=== PATIENT | female | born 1965 | race Caucasian/White ===

== ENCOUNTER → 2016-04-05 | Outpatient (CLI) | payer MEDICAID ==
[2016-04-05 10:39] LABS: % Iron Saturation 31.3 % (20-50)
== END | disposition home or self-care (01) ==
LOC: LABWHC1 07:51
PROVIDERS: ATTEND Clinical Nurse Specialist Women's Health
DX: Z09 Encounter for follow-up examination after completed treatment for conditions other than malignant neoplasm (principal); Z85.850 Personal history of malignant neoplasm of thyroid
CPT/HCPCS: 36415; 83540; 83550; 84481

== ENCOUNTER → 2016-05-26 | Outpatient (CLI) | payer MEDICAID ==
[2016-05-26 12:00] LABS: % Iron Saturation 22.9 % (20-50)
== END | disposition home or self-care (01) ==
LOC: LABWHC1 07:13
PROVIDERS: ATTEND Clinical Nurse Specialist Women's Health
DX: D64.9 Anemia, unspecified (principal)
CPT/HCPCS: 36415; 82728; 83540; 83550

== ENCOUNTER → 2016-06-29 | Outpatient (CLI) | payer MEDICAID ==
[2016-06-29 17:37] LABS: Basophils # (A) 0.1 k/uL (0-0.2); Basophils % (A) 1 %; CHCM 34.1; Eosinophils # (A) 0.3 k/uL (0-0.7); Eosinophils % (A) 3 %; HCT 45.1 % (34.0-46.0); HDW 2.84; HGB 15.2 gm/dL (11.4-16.0); Luc # (Auto) 0.14; Luc % (Auto) 2; Lymphocytes # (A) 2.1 k/uL (1.0-4.8); Lymphocytes % (A) 24 %; MCH 29.8 pg (25.0-35.0); MCHC 33.6 g/dL (31.0-37.0); MCV 88.5 fL (80.0-100.0); Mean Platelet Volume 6.7; Monocytes # (A) 0.5 k/uL (0-1.0); Monocytes % (A) 6 %; Neutrophils # (A) 5.7 k/uL (1.3-7.7); Neutrophils % (A) 65 %; RDW 13.7 % (11.5-15.5); WBC 8.7 k/uL (3.8-10.6); WBC (Perox) 8.93
[2016-06-29 17:52] LABS: ALT 80 U/L (9-52); AST 47 U/L (14-36); Alkaline Phosphatase 63 U/L (38-126); Anion Gap 13 mmol/L; Blood Urea Nitrogen 14 mg/dL (7-17); Calcium 9.5 mg/dL (8.4-10.2); Carbon Dioxide 26 mmol/L (22-30); Chloride 105 mmol/L (98-107); Glucose 126 mg/dL (74-99); Non-African American GFR(MDRD) >60 (>60 ml/min/1.73 sqM); Potassium 3.9 mmol/L (3.5-5.1); Sodium 144 mmol/L (137-145); Total Bilirubin 0.4 mg/dL (0.2-1.3); Total Protein 7.4 g/dL (6.3-8.2)
== END ==
LOC: LABWHC1 17:00
PROVIDERS: ATTEND Family Medicine
DX: E03.9 Hypothyroidism, unspecified (principal); R53.83 Other fatigue; R00.2 Palpitations
CPT/HCPCS: 36415; 80053; 84439; 84443; 84481; 85025

== ENCOUNTER → 2016-08-14 | Outpatient (CLI) | payer MEDICAID ==
[2016-08-14 11:13] LABS: ALT 56 U/L (9-52); AST 31 U/L (14-36); Alkaline Phosphatase 59 U/L (38-126); Anion Gap 8 mmol/L; Blood Urea Nitrogen 19 mg/dL (7-17); Carbon Dioxide 25 mmol/L (22-30); Chloride 108 mmol/L (98-107); Cholesterol 146 mg/dL (<200); Glucose 93 mg/dL (74-99); HDL Cholesterol 50 mg/dL (40-60); Non-African American GFR(MDRD) >60 (>60 ml/min/1.73 sqM); Potassium 4.3 mmol/L (3.5-5.1); Sodium 141 mmol/L (137-145); Total Bilirubin 0.5 mg/dL (0.2-1.3); Total Protein 6.5 g/dL (6.3-8.2); Triglycerides 74 mg/dL (<150)
== END | disposition home or self-care (01) ==
LOC: LABWHC1 07:19
PROVIDERS: ATTEND Family Medicine
DX: E03.9 Hypothyroidism, unspecified (principal); R94.5 Abnormal results of liver function studies; R53.83 Other fatigue
CPT/HCPCS: 36415; 80053; 80061; 84439; 84443; 84481

== ENCOUNTER → 2017-01-07 | Outpatient (CLI) | payer MEDICAID ==
--- NOTE | 2017-01-07 15:21 | US ---
EXAMINATION TYPE: US gallbladder DATE OF EXAM: 01/07/2017 COMPARISON: NONE CLINICAL HISTORY: RUQ pain R10.9. Pt states RUQ pain EXAM MEASUREMENTS: Liver Length: 13.8 cm Gallbladder Wall: 0.2 cm CBD: 0.4 cm Right Kidney: 10.3 x 4.1 x 5.0 cm Pancreas: wnl, tail obscured by overlying bowel gas Liver: wnl Gallbladder: Possible polyp anterior wall Evidence for sonographic Duenas's sign: No CBD: wnl Right Kidney: wnl IMPRESSION: 1. Echogenic foci within the nondependent portion of the gallbladder could be of gallbladder polyp.
== END | disposition home or self-care (01) ==
LOC: RADUSWWP 06:55
PROVIDERS: ATTEND Surgery
DX: R93.2 Abnormal findings on diagnostic imaging of liver and biliary tract (principal); R10.11 Right upper quadrant pain
CPT/HCPCS: 76705

== ENCOUNTER → 2017-01-27 | Outpatient (CLI) | payer MEDICAID | END | disposition home or self-care (01) | LOC: LABWHC1 07:18 | PROVIDERS: ATTEND Family Medicine | DX: E03.9 Hypothyroidism, unspecified (principal); R94.5 Abnormal results of liver function studies; R10.811 Right upper quadrant abdominal tenderness | CPT/HCPCS: 36415; 84439; 84443; 84481 ==

== ENCOUNTER → 2017-03-22 | Outpatient (CLI) | payer MEDICAID ==
[2017-03-22 10:15] LABS: T4, Free (Free Thyroxine) 1.34 ng/dL (0.78-2.19)
== END | disposition home or self-care (01) ==
LOC: LABWHC1 07:46
PROVIDERS: ATTEND Family Medicine
DX: E03.9 Hypothyroidism, unspecified (principal); R10.811 Right upper quadrant abdominal tenderness; R94.5 Abnormal results of liver function studies
CPT/HCPCS: 36415; 84439; 84443; 84481

== ENCOUNTER → 2017-07-20 | Outpatient (CLI) | payer MEDICAID ==
--- NOTE | 2017-07-20 15:06 | XR ---
EXAMINATION TYPE: XR Hip RT and AP Pelvis DATE OF EXAM: 07/20/2017 COMPARISON: NONE HISTORY: Right hip pain radiating from back TECHNIQUE: AP pelvis and 2 views right hip FINDINGS: No acute fractures are evident. Sacroiliac joints and symphysis pubis are normal. Femoral heads articulate with the acetabulum. Joint spaces preserved. Right hip appears intact. IMPRESSION: 1. Normal right hip and AP pelvis
== END | disposition home or self-care (01) ==
LOC: RADXRMAIN 09:01
PROVIDERS: ATTEND Physician Assistant
DX: M25.551 Pain in right hip (principal)
CPT/HCPCS: 73502

== ENCOUNTER → 2017-08-22 | Outpatient (CLI) | payer MEDICAID ==
--- NOTE | 2017-08-23 11:16 | ECHOF ---
Referral Reason:Q23.1 bicuspid aortic valve MEASUREMENTS -------- HEIGHT: 154.9 cm WEIGHT: 70.3 kg BP: 111/77 RVIDd: 2.8 cm (< 3.3) IVSd: 0.9 cm (0.6 - 1.1) LVIDd: 4.6 cm (3.9 - 5.3) LVPWd: 0.9 cm (0.6 - 1.1) IVSs: 1.3 cm LVIDs: 3.4 cm LVPWs: 1.5 cm LA Diam: 3.3 cm (2.7 - 3.8) LAESV Index (A-L): 22.21 ml/m Ao Diam: 3.4 cm (2.0 - 3.7) AV Cusp: 2.3 cm (1.5 - 2.6) MV EXCURSION: 10.629 mm (> 18.000) MV EF SLOPE: 73 mm/s (70 - 150) EPSS: 0.8 cm AV maxP.89 mmHg AV meanP.16 mmHg RAP: 5.00 mmHg RVSP: 24.18 mmHg FINDINGS -------- Sinus rhythm. This was a technically good study. The left ventricular size is normal. Left ventricular wall thickness is normal. Overall left vent ricular systolic function is normal with, an EF between 60 - 65 %. The right ventricle is normal in size. Normal LA size by volume 22+/-6 ml/m2. The right atrium is normal in size. The aortic valve is BICUSPID. Peak/mean gradient across the Aortic Valve is 7.89mmHg / 3.16mmHg. There is trace to mild mitral regurgitation. Mild tricuspid regurgitation present. Right ventricular systolic pressure is normal at < 35 mmHg. Trace/mild (physiologic) pulmonic regurgitation. The aortic root size is normal. Normal inferior vena cava with normal inspiratory collapse consistent with estimated right atrial pre ssure of 5 mmHg. There is no pericardial effusion. CONCLUSIONS -------- 1. Sinus rhythm. 2. This was a technically good study. 3. The left ventricular size is normal. 4. Left ventricular wall thickness is normal. 5. Overall left ventricular systolic function is normal with, an EF between 60 - 65 %. 6. The right ventricle is normal in size. 7. Normal LA size by volume 22+/-6 ml/m2. 8. The right atrium is normal in size. 9. The aortic valve is BICUSPID 10. Peak/mean gradient across the Aortic Valve is 7.89mmHg / 3.16mmHg. 11. There is trace to mild mitral regurgitation. 12. Mild tricuspid regurgitation present. 13. Right ventricular systolic pressure is normal at < 35 mmHg. 14. Trace/mild (physiologic) pulmonic regurgitation. 15. The aortic root size is normal. 16. Normal inferior vena cava with normal inspiratory collapse consistent with estimated right atrial pressure of 5 mmHg. 17. There is no pericardial effusion. SUPERVISOR CABINETMAKER: Maisha Maria RDCS
== END | disposition home or self-care (01) ==
LOC: RADECHMAIN 13:15
PROVIDERS: ATTEND Internal Medicine Cardiovascular Disease
DX: I08.1 Rheumatic disorders of both mitral and tricuspid valves (principal)
CPT/HCPCS: 93306

== ENCOUNTER → 2017-09-30 | Outpatient (CLI) | payer MEDICAID ==
--- NOTE | 2017-10-03 07:13 | MR ---
EXAMINATION TYPE: MR angio chest wo/w con DATE OF EXAM: 09/30/2017 COMPARISON: Prior MRA chest September 21, 2014. HISTORY: Thoracic aortic aneurysm, without rupture,Gadavist 7.5ml CONTRAST: Standard multiplanar, multisequence MRA departmental protocol utilizing 7.5 mL intravenous Gadavist g adolinium contrast. Imaging is performed of the thorax focusing on thoracic aorta. 2-D and 3-D recon structed images are created on the MRI scan are reviewed. FINDINGS: AORTA: Ascending aortic aneurysm measures up to 3.9 cm in diameter on axial image 18 series 1001. Olu e extension into the proximal aortic arch is redemonstrated near three-vessel takeoff measuring up to 3.3 cm in diameter axial image 23. Overall no significant change or progression from prior MRA. Norm al three-vessel origin is redemonstrated without aneurysmal change. No aneurysmal change to the ascen ding aorta is seen. Cardiac size is stable and upper limits of normal. OTHER: Visualized portion of upper abdomen shows no suspicious abnormality. Visualized lungs are lyndsay ssly clear. No suspicious breast masses or axillary adenopathy is identified. IMPRESSION: Stable 3.9 cm aneurysmal change to ascending aorta extending into proximal arch.
== END | disposition home or self-care (01) ==
LOC: RADMRIMAIN 14:27
PROVIDERS: ATTEND Internal Medicine Cardiovascular Disease
DX: I71.2 Thoracic aortic aneurysm, without rupture (principal)
CPT/HCPCS: 71555; A9581

== ENCOUNTER → 2017-10-07 | Outpatient (CLI) | payer MEDICAID ==
[2017-10-07 08:10] LABS: Basophils % (A) 1 %; Eosinophils # (A) 0.1 k/uL (0-0.7); Eosinophils % (A) 2 %; HCT 43.4 % (34.0-46.0); HGB 14.6 gm/dL (11.4-16.0); Lymphocytes # (A) 1.4 k/uL (1.0-4.8); Lymphocytes % (A) 30 %; MCH 29.6 pg (25.0-35.0); MCHC 33.7 g/dL (31.0-37.0); MCV 87.9 fL (80.0-100.0); Mean Platelet Volume 7.5; Monocytes # (A) 0.3 k/uL (0-1.0); Monocytes % (A) 6 %; Neutrophils # (A) 2.8 k/uL (1.3-7.7); Neutrophils % (A) 59 %; Platelet Count 177 k/uL (150-450); RBC 4.93 m/uL (3.80-5.40); WBC 4.8 k/uL (3.8-10.6)
[2017-10-07 08:25] LABS: ALT 32 U/L (9-52); AST 27 U/L (14-36); Albumin 4.3 g/dL (3.5-5.0); Alkaline Phosphatase 49 U/L (38-126); Anion Gap 7 mmol/L; Blood Urea Nitrogen 12 mg/dL (7-17); Calcium 9.4 mg/dL (8.4-10.2); Carbon Dioxide 28 mmol/L (22-30); Chloride 106 mmol/L (98-107); Cholesterol 197 mg/dL (<200); Glucose 95 mg/dL (74-99); HDL Cholesterol 62 mg/dL (40-60); LDL Cholesterol,Calculated 118 mg/dL (0-99); Potassium 4.4 mmol/L (3.5-5.1); Sodium 141 mmol/L (137-145); Total Bilirubin 0.5 mg/dL (0.2-1.3); Total Protein 6.8 g/dL (6.3-8.2); Triglycerides 87 mg/dL (<150)
[2017-10-07 08:34] LABS: T4, Free (Free Thyroxine) 1.64 ng/dL (0.78-2.19)
== END | disposition home or self-care (01) ==
LOC: LABWHC1 07:28
PROVIDERS: ATTEND Family Medicine
DX: Z00.00 Encounter for general adult medical examination without abnormal findings (principal); I10 Essential (primary) hypertension; E03.9 Hypothyroidism, unspecified; Z79.899 Other long term (current) drug therapy
CPT/HCPCS: 36415; 80053; 80061; 84439; 84443; 85025

== ENCOUNTER → 2017-10-13 | Outpatient (CLI) | payer MEDICAID ==
--- NOTE | 2017-10-18 09:17 | MM ---
Reason for exam: screening (asymptomatic). Last mammogram was performed 1 year and 10 months ago. History: Patient is nulliparous. Family history of breast cancer in cousin and breast cancer in aunt. Physical Findings: A clinical breast exam by your physician is recommended on an annual basis and results should be correlated with mammographic findings. MG 3D Screening Mammo W/Cad Bilateral CC and MLO view(s) were taken. Prior study comparison: December 03, 2015, bilateral MG 3d screening mammo w/cad. January 20, 2011, bilateral digital screening mammo w/CAD. There are scattered fibroglandular densities. Benign appearing bilateral calcifications. There is no discrete abnormality. No significant changes when compared with prior studies. ASSESSMENT: Benign, BI-RAD 2 RECOMMENDATION: Routine screening mammogram of both breasts in 1 year.
== END | disposition home or self-care (01) ==
LOC: RADMAMWWP 09:18
PROVIDERS: ATTEND Obstetrics & Gynecology
DX: Z12.31 Encounter for screening mammogram for malignant neoplasm of breast (principal); Z80.3 Family history of malignant neoplasm of breast
CPT/HCPCS: 77063; 77067

== ENCOUNTER → 2018-12-14 | Outpatient (CLI) | payer MEDICAID ==
[2018-12-14 07:58] LABS: Basophils # (A) 0.1 k/uL (0-0.2); Basophils % (A) 2 %; Eosinophils # (A) 0.2 k/uL (0-0.7); Eosinophils % (A) 4 %; HCT 44.8 % (34.0-46.0); HGB 14.3 gm/dL (11.4-16.0); Lymphocytes # (A) 1.5 k/uL (1.0-4.8); Lymphocytes % (A) 33 %; MCH 27.9 pg (25.0-35.0); MCHC 31.9 g/dL (31.0-37.0); MCV 87.5 fL (80.0-100.0); Mean Platelet Volume 6.8; Monocytes # (A) 0.3 k/uL (0-1.0); Monocytes % (A) 8 %; Neutrophils # (A) 2.4 k/uL (1.3-7.7); Neutrophils % (A) 52 %; Platelet Count 170 k/uL (150-450); RBC 5.12 m/uL (3.80-5.40); RDW 13.5 % (11.5-15.5); WBC 4.5 k/uL (3.8-10.6)
[2018-12-14 13:28] LABS: African American GFR (CKD) 97.6 (60.0-200.0); Albumin 4.6 g/dL (3.80-4.90); Albumin/Globulin Ratio 2.09 (1.60-3.17); Anion Gap 9.1 mmol/L (4.00-12.00); BUN/Creat Ratio 27.5 Ratio (12.00-20.00); Calcium 9.7 mg/dL (8.7-10.3); Carbon Dioxide 29.9 mmol/L (21.6-31.8); Chol/HDL Ratio 4.08; Globulin 2.2 g/dL (1.6-3.3); Potassium 4.4 mmol/L (3.5-5.5); Total Bilirubin 0.5 mg/dL (0.3-1.2); Total Protein 6.8 g/dL (6.2-8.2)
== END | disposition home or self-care (01) ==
LOC: LABWHC1 07:33
PROVIDERS: ATTEND Family Medicine
DX: Z00.00 Encounter for general adult medical examination without abnormal findings (principal); F41.1 Generalized anxiety disorder; E03.9 Hypothyroidism, unspecified
CPT/HCPCS: 36415; 80053; 80061; 84439; 84443; 85025

== ENCOUNTER → 2019-01-01 | Outpatient (CLI) | payer MEDICAID ==
--- NOTE | 2019-01-02 10:38 | MM ---
Reason for exam: screening (asymptomatic). Last mammogram was performed 1 year and 3 months ago. History: Patient is nulliparous. Family history of breast cancer in cousin and breast cancer in aunt. Physical Findings: A clinical breast exam by your physician is recommended on an annual basis and results should be correlated with mammographic findings. MG 3D Screening Mammo W/Cad Bilateral CC and MLO view(s) were taken. Prior study comparison: October 13, 2017, bilateral MG 3d screening mammo w/cad. December 03, 2015, bilateral MG 3d screening mammo w/cad. There are scattered fibroglandular densities. There are benign appearing round calcifications bilaterally. There is no discrete abnormality. ASSESSMENT: Benign, BI-RAD 2 RECOMMENDATION: Routine screening mammogram of both breasts in 1 year.
== END | disposition home or self-care (01) ==
LOC: RADMAMWWP 13:30
PROVIDERS: ATTEND Family Medicine
DX: Z12.31 Encounter for screening mammogram for malignant neoplasm of breast (principal)
CPT/HCPCS: 77063; 77067

== ENCOUNTER 2019-09-24 04:46 | Emergency (ER) | payer MEDICAID ==
[2019-09-24 04:54] VITALS: TEMP 99.1
--- NOTE | 2019-09-24 05:35 | ED ---
SOB HPI - General Chief Complaint: Shortness of Breath Stated Complaint: CHARLES Time Seen by Provider: 09/24/19 05:15 Source: patient Mode of arrival: ambulatory Limitations: no limitations - History of Present Illness Initial Comments: This patient is a 54-year-old woman with history of asthma and ALLERGIES, who presents to be evaluated for shortness of breath and upper chest pain that has been going on since Tuesday. Patient states that she had initially felt this may be an exacerbation of her asthma, but when she woke this morning she also was having some fever associated and felt she should be evaluated. 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 MD Complaint: shortness of breath, chest pain Onset/Timin -: days(s) Severity: mild Severity scale (1-10): 2 Quality: dull Consistency: intermittent Improves With: nothing Worsens With: nothing Known History Of: asthma Associated Symptoms: chest pain, fever - Related Data Home Oxygen Therapy: No Home Medications Medication Instructions Recorded Confirmed Albuterol Sulfate [Ventolin HFA] 1 - 2 puff INHALATION RT-Q6H PRN 09/24/19 09/24/19 Calcium Chew 1 tab PO DAILY 09/24/19 09/24/19 Cefuroxime [Ceftin] 250 mg PO DAILY 09/24/19 09/24/19 Cetirizine HCl [Zyrtec] 10 mg PO DAILY@1800 09/24/19 09/24/19 Fluticasone Nasal Tucker [Flonase 1 spr EA NOSTRIL HS 09/24/19 09/24/19 Nasal Tucker] Ibuprofen [Motrin Ib] 200 mg PO Q8H PRN 09/24/19 09/24/19 Levothyroxine Sodium [Synthroid] 112 mcg PO DAILY 09/24/19 09/24/19 Montelukast [Singulair] 10 mg PO DAILY 09/24/19 09/24/19 Multivitamins, Thera [Multivitamin 1 tab PO DAILY 09/24/19 09/24/19 (formulary)] Sertraline [Zoloft] 50 mg PO DAILY 09/24/19 09/24/19 Allergies Allergy/AdvReac Type Severity Reaction Status Date / Time No Known Allergies Allergy Verified 09/24/19 07:39 Review of Systems ROS Statement: Those systems with pertinent positive or pertinent negative responses have been documented in the HPI. ROS Other: All systems not noted in ROS Statement are negative. Constitutional: Reports: fever. Denies: chills, weakness ENT: Denies: throat pain, congestion Respiratory: Reports: as per HPI, dyspnea, wheezes. Denies: hemoptysis Cardiovascular: Reports: as per HPI, chest pain. Denies: palpitations, dyspnea on exertion, orthopnea, edema Gastrointestinal: Denies: abdominal pain, nausea, vomiting Genitourinary: Denies: dysuria, frequency, hematuria Musculoskeletal: Denies: back pain Skin: Denies: rash Neurological: Denies: headache, weakness Past Medical History Past Medical History: Asthma History of Any Multi-Drug Resistant Organisms: None Reported Past Surgical History: No Surgical Hx Reported Past Psychological History: No Psychological Hx Reported Smoking Status: Never smoker Past Alcohol Use History: Rare Past Drug Use History: None Reported General Exam Limitations: no limitations General appearance: alert, in no apparent distress Head exam: Present: atraumatic, normocephalic Eye exam: Present: normal appearance. Absent: scleral icterus, conjunctival injection ENT exam: Present: mucous membranes moist, other (Mild cobblestoning of the pharynx) Neck exam: Present: normal inspection, full ROM Respiratory exam: Present: wheezes. Absent: normal lung sounds bilaterally, respiratory distress, rales, rhonchi, stridor Cardiovascular Exam: Present: regular rate, normal rhythm, normal heart sounds. Absent: systolic murmur, diastolic murmur, rubs, gallop GI/Abdominal exam: Present: soft. Absent: distended, tenderness, guarding, rebound, rigid, mass Extremities exam: Present: normal inspection, normal capillary refill. Absent: pedal edema, calf tenderness Back exam: Present: normal inspection. Absent: CVA tenderness (R), CVA tenderness (L) Neurological exam: Present: alert Skin exam: Present: warm, dry, intact, normal color. Absent: rash Course Vital Signs 09/24/19 09/24/19 09/24/19 04:50 05:12 07:22 Temperature 99.1 F Pulse Rate 97 75 Respiratory 18 16 16 Rate Blood Pressure 137/100 138/93 O2 Sat by Pulse 97 98 Oximetry 09/24/19 08:00 Temperature Pulse Rate 75 Respiratory 16 Rate Blood Pressure 122/87 O2 Sat by Pulse 98 Oximetry Medical Decision Making - Lab Data Result diagrams: 09/24/19 05:51 09/24/19 05:51 Lab Results 09/24/19 09/24/19 09/24/19 Range/Units 05:51 05:51 05:51 WBC 9.1 (3.8-10.6) k/uL RBC 4.77 (3.80-5.40) m/uL Hgb 14.3 (11.4-16.0) gm/dL Hct 41.1 (34.0-46.0) % MCV 86.2 (80.0-100.0) fL MCH 30.0 (25.0-35.0) pg MCHC 34.8 (31.0-37.0) g/dL RDW 13.4 (11.5-15.5) % Plt Count 177 (150-450) k/uL Neutrophils % 75 % Lymphocytes % 15 % Monocytes % 8 % Eosinophils % 1 % Basophils % 0 % Neutrophils # 6.8 (1.3-7.7) k/uL Lymphocytes # 1.3 (1.0-4.8) k/uL Monocytes # 0.7 (0-1.0) k/uL Eosinophils # 0.1 (0-0.7) k/uL Basophils # 0.0 (0-0.2) k/uL PT 9.6 (9.0-12.0) sec INR 0.9 (<1.2) APTT 24.7 (22.0-30.0) sec D-Dimer 1.13 H (<0.60) mg/L FEU Sodium 140 (137-145) mmol/L Potassium 4.4 (3.5-5.1) mmol/L Chloride 108 H (98-107) mmol/L Carbon Dioxide 26 (22-30) mmol/L Anion Gap 6 mmol/L BUN 11 (7-17) mg/dL Creatinine 0.60 (0.52-1.04) mg/dL Est GFR (CKD-EPI)AfAm >90 (>60 ml/min/1.73 sqM) Est GFR (CKD-EPI)NonAf >90 (>60 ml/min/1.73 sqM) Glucose 110 H (74-99) mg/dL Calcium 9.8 (8.4-10.2) mg/dL Total Bilirubin 0.7 (0.2-1.3) mg/dL AST 32 (14-36) U/L ALT 19 (4-34) U/L Alkaline Phosphatase 76 (38-126) U/L Troponin I (0.000-0.034) ng/mL NT-Pro-B Natriuret Pep pg/mL Total Protein 7.5 (6.3-8.2) g/dL Albumin 4.5 (3.5-5.0) g/dL 09/24/19 09/24/19 Range/Units 05:51 05:51 WBC (3.8-10.6) k/uL RBC (3.80-5.40) m/uL Hgb (11.4-16.0) gm/dL Hct (34.0-46.0) % MCV (80.0-100.0) fL MCH (25.0-35.0) pg MCHC (31.0-37.0) g/dL RDW (11.5-15.5) % Plt Count (150-450) k/uL Neutrophils % % Lymphocytes % % Monocytes % % Eosinophils % % Basophils % % Neutrophils # (1.3-7.7) k/uL Lymphocytes # (1.0-4.8) k/uL Monocytes # (0-1.0) k/uL Eosinophils # (0-0.7) k/uL Basophils # (0-0.2) k/uL PT (9.0-12.0) sec INR (<1.2) APTT (22.0-30.0) sec D-Dimer (<0.60) mg/L FEU Sodium (137-145) mmol/L Potassium (3.5-5.1) mmol/L Chloride (98-107) mmol/L Carbon Dioxide (22-30) mmol/L Anion Gap mmol/L BUN (7-17) mg/dL Creatinine (0.52-1.04) mg/dL Est GFR (CKD-EPI)AfAm (>60 ml/min/1.73 sqM) Est GFR (CKD-EPI)NonAf (>60 ml/min/1.73 sqM) Glucose (74-99) mg/dL Calcium (8.4-10.2) mg/dL Total Bilirubin (0.2-1.3) mg/dL AST (14-36) U/L ALT (4-34) U/L Alkaline Phosphatase (38-126) U/L Troponin I <0.012 (0.000-0.034) ng/mL NT-Pro-B Natriuret Pep 291 pg/mL Total Protein (6.3-8.2) g/dL Albumin (3.5-5.0) g/dL - EKG Data -: EKG Interpreted by Me EKG shows normal: sinus rhythm (Rate 79 bpm), axis (Normal), intervals (Normal), QRS complexes (Normal), ST-T waves (Normal) Rate: normal (Normal) Interpretation: normal EKG Disposition Clinical Impression: Asthma Disposition: HOME SELF-CARE Condition: Good Instructions (If sedation given, give patient instructions): Asthma (ED) Is patient prescribed a controlled substance at d/c from ED?: No Referrals: Alex Sandoval MD [Primary Care Provider] - 1-2 days
[2019-09-24 06:13] LABS: Basophils % (A) 0 %; Eosinophils # (A) 0.1 k/uL (0-0.7); Eosinophils % (A) 1 %; HCT 41.1 % (34.0-46.0); HGB 14.3 gm/dL (11.4-16.0); Lymphocytes # (A) 1.3 k/uL (1.0-4.8); Lymphocytes % (A) 15 %; MCHC 34.8 g/dL (31.0-37.0); MCV 86.2 fL (80.0-100.0); Mean Platelet Volume 7.3; Monocytes # (A) 0.7 k/uL (0-1.0); Monocytes % (A) 8 %; Neutrophils # (A) 6.8 k/uL (1.3-7.7); Neutrophils % (A) 75 %; Platelet Count 177 k/uL (150-450); RBC 4.77 m/uL (3.80-5.40); RDW 13.4 % (11.5-15.5); WBC 9.1 k/uL (3.8-10.6)
[2019-09-24 06:21] LABS: ALT 19 U/L (4-34); AST 32 U/L (14-36); African American GFR (CKD) >90 (>60 ml/min/1.73 sqM); Albumin 4.5 g/dL (3.5-5.0); Alkaline Phosphatase 76 U/L (38-126); Anion Gap 6 mmol/L; Blood Urea Nitrogen 11 mg/dL (7-17); Calcium 9.8 mg/dL (8.4-10.2); Carbon Dioxide 26 mmol/L (22-30); Chloride 108 mmol/L (98-107); Glucose 110 mg/dL (74-99); Non-African American GFR(CKD) >90 (>60 ml/min/1.73 sqM); Potassium 4.4 mmol/L (3.5-5.1); Sodium 140 mmol/L (137-145); Total Bilirubin 0.7 mg/dL (0.2-1.3); Total Protein 7.5 g/dL (6.3-8.2)
[2019-09-24 06:24] LABS: INR 0.9 (<1.2); Partial Thromboplastin Time 24.7 sec (22.0-30.0); Prothrombin Time 9.6 sec (9.0-12.0)
[2019-09-24 06:38] LABS: D-Dimer 1.13 mg/L FEU (<0.60)
--- NOTE | 2019-09-24 07:05 | XR ---
EXAMINATION TYPE: XR chest 2V DATE OF EXAM: 09/24/2019 COMPARISON: NONE HISTORY: Short of breath TECHNIQUE: FINDINGS: Heart and mediastinum are normal. Lungs are clear. Diaphragm is normal. Bony thorax appears normal. IMPRESSION: Normal chest.
--- NOTE | 2019-09-24 08:03 | CT ---
EXAMINATION TYPE: CT chest angio for PE DATE OF EXAM: 09/24/2019 COMPARISON: None HISTORY: Possible PE, positive D-dimer CT DLP: 282 mGycm CONTRAST: CT chest with contrast and 3D reconstruction with MIP imaging is performed without and with IV Contra st, patient injected with 100 ml mL of Isovue 370. Contrast-enhanced CT of the chest was performed through the course of the pulmonary arteries with jewel g and mediastinal window settings submitted. 3D reconstruction with MIP imaging was also performed. PULMONARY ARTERIES: The pulmonary arteries and their major tributaries are patent. I do not see blanca dence for sizable filling defect to suggest pulmonary embolic process. LUNGS: The lungs are clear and free of infiltrate. Mild left basilar and lingular atelectasis. Small left-sided pleural effusion. No pulmonary nodule or mass is detected. No MEDIASTINUM: Ascending thoracic aortic aneurysm measuring 4.2 cm AP dimension. The heart is mildly en larged. Mild pericardial thickening versus small pericardial effusion. No evidence for mediastinal m ass. No mediastinal lymph nodes greater than 1cm. HILAR STRUCTURES: No evidence for mass. No hilar lymph nodes greater than 1 cm. UPPER ABDOMEN: No significant abnormality is seen. IMPRESSION: 1. No evidence for Pulmonary embolism at this time.
[2019-09-24 08:10] VITALS: BP 122/87
[2019-09-24 08:33] VITALS: PULSE 71; RESP 14
== END 2019-09-24 08:32 | disposition home or self-care (01) ==
LOC: EC 04:46
DX: J45.909 Unspecified asthma, uncomplicated (principal); Z20.828 Contact with and (suspected) exposure to other viral communicable diseases
CPT/HCPCS: 36415; 93005; 85379; 83880; 80053; 84484; 85025; 85610; 85730; 71046; 71275; 99285; U0003; Q9967

== ENCOUNTER → 2019-09-25 | Outpatient (CLI) | payer MEDICAID | LOC: LABWHC1 10:29 | PROVIDERS: ATTEND Pediatrics Pediatric Infectious Diseases | DX: Z11.59 Encounter for screening for other viral diseases (principal) | CPT/HCPCS: U0003; C9803 ==

== ENCOUNTER → 2020-07-18 | Outpatient (CLI) | payer MEDICAID ==
[2020-07-18 13:31] LABS: Basophils % (A) 1 %; Eosinophils # (A) 0.1 k/uL (0-0.7); Eosinophils % (A) 2 %; HCT 42.6 % (34.0-46.0); Lymphocytes # (A) 1.6 k/uL (1.0-4.8); Lymphocytes % (A) 40 %; MCH 29.9 pg (25.0-35.0); MCHC 35.2 g/dL (31.0-37.0); MCV 84.9 fL (80.0-100.0); Mean Platelet Volume 9.2; Monocytes # (A) 0.3 k/uL (0-1.0); Monocytes % (A) 8 %; Neutrophils % (A) 49 %; Platelet Count 166 k/uL (150-450); RBC 5.02 m/uL (3.80-5.40); RDW 12.9 % (11.5-15.5); WBC 4.2 k/uL (3.8-10.6)
[2020-07-18 21:03] LABS: T4, Free (Free Thyroxine) 1.3 ng/dL (0.80-1.80)
[2020-07-18 21:15] LABS: African American GFR (CKD) 96.2 (60.0-200.0); Albumin 4.5 g/dL (3.80-4.90); Albumin/Globulin Ratio 1.88 (1.60-3.17); Anion Gap 11.7 mmol/L (4.00-12.00); BUN/Creat Ratio 22.5 Ratio (12.00-20.00); Calcium 9.3 mg/dL (8.7-10.3); Carbon Dioxide 21.3 mmol/L (21.6-31.8); Chol/HDL Ratio 3.78; Globulin 2.4 g/dL (1.6-3.3); LDL Cholesterol,Calculated 117.6 mg/dL (0.0-131.0); Potassium 4.8 mmol/L (3.5-5.5); Total Bilirubin 0.5 mg/dL (0.2-1.2); Total Protein 6.9 g/dL (6.2-8.2); VLDL Calculation 18.4 mg/dL (5.00-40.00)
== END | disposition home or self-care (01) ==
LOC: LABWHC1 11:10
PROVIDERS: ATTEND Family Medicine
DX: I71.4 Abdominal aortic aneurysm, without rupture (principal)
CPT/HCPCS: 36415; 80053; 80061; 84439; 84443; 85025

== ENCOUNTER → 2020-07-21 | Outpatient (CLI) | payer MEDICAID ==
--- NOTE | 2020-07-22 08:34 | XR ---
EXAMINATION TYPE: XR cervical spine comp DATE OF EXAM: 07/21/2020 CLINICAL HISTORY: pain COMPARISON: NONE TECHNIQUE: Frontal, lateral, oblique, swimmers, and open mouth view of the cervical spine are obtaine d. FINDINGS: The cervical spine is visualized in its entirety from C1 thru the top of T1 level. It is s atisfactory in alignment without evidence of acute fracture or dislocation. The pre-vertebral soft t issue appears within normal limits. Moderate to severe degenerative disc space narrowing and spondylo sis at C6-7. Mild degenerative narrowing at C4-5 and C5-6. Mild left-sided foraminal encroachment at C6-7. The C1-C2 articulation is unremarkable on the open mouth view. IMPRESSION: Degenerative changes as noted above.
== END | disposition home or self-care (01) ==
LOC: RADXRMAIN 16:08
PROVIDERS: ATTEND Family Medicine
DX: M50.323 Other cervical disc degeneration at C6-C7 level (principal); M47.812 Spondylosis without myelopathy or radiculopathy, cervical region; M99.71 Connective tissue and disc stenosis of intervertebral foramina of cervical region
CPT/HCPCS: 72050

== ENCOUNTER → 2020-07-21 | Outpatient (CLI) | payer MEDICAID ==
--- NOTE | 2020-07-21 16:52 | ECHOF ---
Referral Reason:AAA greater than 39mm in diameter I71.4 MEASUREMENTS -------- HEIGHT: 154.9 cm WEIGHT: 72.6 kg BP: IVSd: 1.0 cm (0.6 - 1.1) LVIDd: 4.4 cm (3.9 - 5.3) LVPWd: 1.1 cm (0.6 - 1.1) EDV(Teich): 87 ml IVSs: 1.5 cm LVIDs: 2.7 cm LVPWs: 1.6 cm %IVS Thck: 43 % ESV(Teich): 27 ml EF(Teich): 69 % %FS: 38 % SV(Teich): 60 ml RVIDd: 2.8 cm (< 3.3) IVC: 16.52 mm LALs A4C: 4.9 cm LAAs A4C: 14.3 cm LAESV A-L A4C: 35 ml LAESV MOD A4C: 33 ml LALs A2C: 5.5 cm LAAs A2C: 19.5 cm LAESV A-L A2C: 59 ml LAESV MOD A2C: 55 ml LAESV(A-L): 48 ml LAESV Index (A-L): 28.14 ml/m Ao Diam: 3.2 cm (2.0 - 3.7) LA Diam: 3.0 cm (2.7 - 3.8) AV Cusp: 2.0 cm (1.5 - 2.6) EPSS: 1.0 cm MV E Andrea: 0.64 m/s MV DecT: 168 ms MV Dec Donley: 3.8 m/s MV A Andrea: 0.55 m/s MV E/A Ratio: 1.17 MV PHT: 49 ms MR Vmax: 1.61 m/s MR maxP.39 mmHg AV Vmax: 1.46 m/s AV maxP.53 mmHg AV Vmax: 1.63 m/s AV Vmean: 1.25 m/s AV maxP.61 mmHg AV meanP.62 mmHg AV Env.Ti: 304 ms AV VTI: 37.9 cm PV Vmax: 0.75 m/s PV maxP.24 mmHg CO Vmax: 1.58 m/s CO maxP.99 mmHg CO PHT: 1076 ms CO DecT: 3711 ms CO Dec Donley: 0.4 m/s TR Vmax: 1.53 m/s TR maxP.41 mmHg RAP: 5.00 mmHg RVSP: 14.41 mmHg MV EF SLOPE: 143.82 mm/s (70 - 150) MV EXCURSION: 17.01 mm (> 18.000) FINDINGS -------- This was a technically good study. The left ventricular size is normal. Left ventricular wall thickness is normal. Overall left vent ricular systolic function is normal with, an EF between 55 - 60 %. The diastolic filling pattern is normal for the age of the patient 9.16. The right ventricle is normal in size. The left atrial size is normal. Normal LA size by volume 22+/-6 ml/m2. The right atrial size is normal. There is a small flow seen between the aorta and the pulmonic valve. Could represent coronary flow. Peak/mean gradient across the Aortic Valve is 10.61mmHg / 6.62mmHg. Functionally bicuspid aortic va lve. The mitral valve is normal. There is trace mitral regurgitation. The tricuspid valve appears structurally normal. Trace tricuspid regurgitation present. Right libby tricular systolic pressure is normal at < 35 mmHg. Trace/mild (physiologic) pulmonic regurgitation. The aortic root size is normal. Normal inferior vena cava with normal inspiratory collapse consistent with estimated right atrial pre ssure of 5 mmHg. There is no pericardial effusion. CONCLUSIONS -------- 1. The left ventricular size is normal. 2. Left ventricular wall thickness is normal. 3. Overall left ventricular systolic function is normal with, an EF between 55 - 60 %. 4. The diastolic filling pattern is normal for the age of the patient 9.16 5. There is a small flow seen between the aorta and the pulmonic valve. Could represent coronary flow . 6. Peak/mean gradient across the Aortic Valve is 10.61mmHg / 6.62mmHg. 7. Functionally bicuspid aortic valve. 8. There is trace mitral regurgitation. 9. Trace tricuspid regurgitation present. 10. Trace/mild (physiologic) pulmonic regurgitation. 11. There is no pericardial effusion. ORACLE ETL DEVELOPER: Belinda Rod RDCS
== END | disposition home or self-care (01) ==
LOC: RADECHMAIN 15:07
PROVIDERS: ATTEND Family Medicine
DX: I08.3 Combined rheumatic disorders of mitral, aortic and tricuspid valves (principal); I37.1 Nonrheumatic pulmonary valve insufficiency
CPT/HCPCS: 93306

== ENCOUNTER → 2020-10-23 | Outpatient (CLI) | payer MEDICAID ==
--- NOTE | 2020-10-27 11:58 | MM ---
Reason for exam: screening (asymptomatic). Last mammogram was performed 1 year and 10 months ago. History: Patient is nulliparous. Family history of breast cancer in cousin and breast cancer in aunt. Physical Findings: A clinical breast exam by your physician is recommended on an annual basis and results should be correlated with mammographic findings. MG 3D Screening Mammo W/Cad Bilateral CC and MLO view(s) were taken. Prior study comparison: January 01, 2019, bilateral MG 3d screening mammo w/cad. October 13, 2017, bilateral MG 3d screening mammo w/cad. December 03, 2015, bilateral MG 3d screening mammo w/cad. There are scattered fibroglandular densities. No significant changes when compared with prior studies. ASSESSMENT: Negative, BI-RAD 1 RECOMMENDATION: Routine screening mammogram of both breasts in 1 year.
== END | disposition home or self-care (01) ==
LOC: RADMAMWWP 10:26
PROVIDERS: ATTEND Family Medicine
DX: Z12.31 Encounter for screening mammogram for malignant neoplasm of breast (principal); Z80.3 Family history of malignant neoplasm of breast
CPT/HCPCS: 77063; 77067

== ENCOUNTER → 2021-02-13 | Outpatient (CLI) | payer MEDICAID, OTHER | END | disposition home or self-care (01) | LOC: LABWHC1 08:37 | PROVIDERS: ATTEND Emergency Medicine | DX: Z20.822 Contact with and (suspected) exposure to COVID-19 (principal) | CPT/HCPCS: 87635 ==

== ENCOUNTER → 2021-02-14 | Outpatient (CLI) | payer MEDICAID, OTHER | END | disposition home or self-care (01) | LOC: LABWHC1 09:00 | PROVIDERS: ATTEND Emergency Medicine | DX: Z20.822 Contact with and (suspected) exposure to COVID-19 (principal) | CPT/HCPCS: 87635 ==

== ENCOUNTER → 2021-08-16 | Outpatient (CLI) | payer MEDICAID, OTHER | END | disposition home or self-care (01) | LOC: LABWHC1 08:33 | PROVIDERS: ATTEND Emergency Medicine | DX: U07.1 COVID-19 (principal) | CPT/HCPCS: 87635 ==

== ENCOUNTER → 2021-08-26 | Outpatient (CLI) | payer MEDICAID ==
[2021-08-26 14:47] LABS: Basophils # (A) 0.03 X 10*3/uL (0.00-0.10); Basophils % (A) 0.5 %; Eosinophils # (A) 0.14 X 10*3/uL (0.04-0.35); Eosinophils % (A) 2.4 %; HCT 40.8 % (37.2-46.3); HGB 13.2 g/dL (12.0-15.0); Immature Grans, Automated 0.2 %; Lymphocytes # (A) 1.37 X 10*3/uL (0.90-5.00); Lymphocytes % (A) 23.2 %; MCH 28.4 pg (27.0-32.0); MCHC 32.4 g/dL (32.0-37.0); MCV 87.7 fL (80.0-97.0); Mean Platelet Volume 10.3 fL (9.5-12.2); Monocytes # (A) 0.51 X 10*3/uL (0.20-1.00); Monocytes % (A) 8.6 %; NRBC Per 100 WBC 0 /100 WBCS (0.0-0.0); Neutrophils # (A) 3.84 X 10*3/uL (1.80-7.70); Neutrophils % (A) 65.1 %; Platelet Count 192 X 10*3/uL (140-440); RBC 4.65 X 10*6/uL (4.10-5.20); RDW 13.2 % (11.5-14.5)
[2021-08-26 16:24] LABS: Rheumatoid Factor, Qnt 12 IU/mL (0-15)
[2021-08-26 16:25] LABS: ALT 28 U/L (8-44); AST 24 U/L (13-35); African American GFR (CKD) 95.5 (60.0-200.0); Albumin 4.3 g/dL (3.8-4.9); Albumin/Globulin Ratio 1.72 (1.60-3.17); Alkaline Phosphatase 69 U/L (41-126); BUN/Creat Ratio 16.88 Ratio (12.00-20.00); Blood Urea Nitrogen 13.5 mg/dL (9.0-27.0); Calcium 9.3 mg/dL (8.7-10.3); Carbon Dioxide 27.4 mmol/L (20.0-27.5); Chloride 104 mmol/L (96-109); Chol/HDL Ratio 4.78 Ratio; Globulin 2.5 g/dL (1.6-3.3); Glucose 103 mg/dL (70-110); LDL Cholesterol,Calculated 157.7 mg/dL (0.0-131.0); Non-African American GFR(CKD) 82.4 (60.0-200.0); Potassium 4.6 mmol/L (3.5-5.5); Sodium 140 mmol/L (135-145); Total Protein 6.8 g/dL (6.2-8.2)
[2021-08-26 18:05] LABS: Cyclic Citrull Pep IgG Unit <0.5 U/mL; Cyclic Citrullinated Pep IgG NEGATIVE (NEGATIVE)
== END | disposition home or self-care (01) ==
LOC: LABWHC1 07:25
PROVIDERS: ATTEND Nurse Practitioner Family
DX: Z00.00 Encounter for general adult medical examination without abnormal findings (principal); R06.02 Shortness of breath; M25.20 Flail joint, unspecified joint; E06.3 Autoimmune thyroiditis; Z79.899 Other long term (current) drug therapy
CPT/HCPCS: 36415; 80053; 80061; 82306; 84443; 85025; 86200; 86431

== ENCOUNTER → 2022-06-11 | Outpatient (CLI) | payer MEDICAID ==
[2022-06-11 15:17] LABS: Basophils # (A) 0.04 X 10*3/uL (0.00-0.10); Basophils % (A) 0.9 %; Eosinophils % (A) 2.2 %; HCT 41.1 % (37.2-46.3); HGB 13.6 g/dL (12.0-15.0); Immature Grans, Automated 0.2 %; Lymphocytes # (A) 1.83 X 10*3/uL (0.90-5.00); Lymphocytes % (A) 39.4 %; MCH 28.9 pg (27.0-32.0); MCHC 33.1 g/dL (32.0-37.0); MCV 87.4 fL (80.0-97.0); Mean Platelet Volume 10.8 fL (9.5-12.2); Monocytes % (A) 6.5 %; NRBC Per 100 WBC 0 /100 WBCS (0.0-0.0); Neutrophils # (A) 2.37 X 10*3/uL (1.80-7.70); Neutrophils % (A) 50.8 %; Platelet Count 182 X 10*3/uL (140-440); RDW 12.8 % (11.5-14.5); WBC 4.65 X 10*3/uL (4.50-10.00)
[2022-06-11 16:25] LABS: ALT 19 U/L (8-44); AST 21 U/L (13-35); African American GFR (CKD) 94.9 (60.0-200.0); Albumin 4.5 g/dL (3.8-4.9); Albumin/Globulin Ratio 1.61 (1.60-3.17); Alkaline Phosphatase 58 U/L (41-126); Blood Urea Nitrogen 18.4 mg/dL (9.0-27.0); Calcium 9.6 mg/dL (8.7-10.3); Carbon Dioxide 24.8 mmol/L (20.0-27.5); Chloride 106 mmol/L (96-109); Chol/HDL Ratio 3.47 Ratio; Globulin 2.8 g/dL (1.6-3.3); Glucose 92 mg/dL (70-110); LDL Cholesterol,Calculated 121.2 mg/dL (0.0-131.0); Non-African American GFR(CKD) 81.8 (60.0-200.0); Potassium 4.5 mmol/L (3.5-5.5); Sodium 141 mmol/L (135-145); Total Protein 7.3 g/dL (6.2-8.2)
== END | disposition home or self-care (01) ==
LOC: LABWHC1 10:26
PROVIDERS: ATTEND Family Medicine
DX: J30.2 Other seasonal allergic rhinitis (principal); E06.3 Autoimmune thyroiditis; E78.2 Mixed hyperlipidemia; N95.9 Unspecified menopausal and perimenopausal disorder; Z79.890 Hormone replacement therapy
CPT/HCPCS: 36415; 80053; 80061; 84443; 85025

== ENCOUNTER → 2022-07-30 | Outpatient (CLI) | payer MEDICAID ==
--- NOTE | 2022-08-02 10:12 | MM ---
Reason for Exam: Screening (asymptomatic). Last mammogram was performed 1 year(s) and 10 month(s) ago. Patient History: Menarche at age 11. Patient has no children. Postmenopausal. Maternal cousin had breast cancer. Paternal aunt had breast cancer. Risk Values: Lizette 5 year model risk: 1.6%. NCI Lifetime model risk: 9.5%. Prior Study Comparison: 10/13/2017 Bilateral Screening Mammogram, [facility]. 01/01/2019 Bilateral Screening Mammogram, [facility]. 10/23/2020 Bilateral Screening Mammogram, [facility]. Tissue Density: There are scattered fibroglandular densities. Findings: Analyzed By CAD. There are tiny circumscribed round masses redemonstrated throughout the bilateral breasts. There is no suspicious group of microcalcifications or new suspicious mass in either breast. Overall Assessment: Benign, BI-RAD 2 Management: Screening Mammogram of both breasts in 1 year. . Patient should continue monthly self-breast exams. A clinical breast exam by your physician is recommended on an annual basis. This exam should not preclude additional follow-up of suspicious palpable abnormalities. Note on Lizette scores and lifetime risk: 1. A Lizette score greater than 3% is considered moderate risk. If this is the case, consider specialist referral to assess eligibility for a risk reducing agent. 2. If overall lifetime risk for the development of breast cancer is 20% or higher, the patient may qualify for future screening with alternating mammogram and breast MRI. Electronically signed and approved by: Edward Boo M.D.
== END | disposition home or self-care (01) ==
LOC: RADMAMWWP 08:24
PROVIDERS: ATTEND Family Medicine
DX: Z12.31 Encounter for screening mammogram for malignant neoplasm of breast (principal); Z78.0 Asymptomatic menopausal state; Z80.3 Family history of malignant neoplasm of breast
CPT/HCPCS: 77063; 77067

== ENCOUNTER → 2023-03-02 | Outpatient (CLI) | payer MEDICAID ==
--- NOTE | 2023-03-03 05:53 | XR ---
EXAMINATION TYPE: XR foot complete RT DATE OF EXAM: 03/02/2023 CLINICAL HISTORY: Pain, possible arthritis TECHNIQUE: Frontal, lateral, and oblique images of the right foot are obtained. COMPARISON: None FINDINGS: There is no acute fracture/dislocation evident in the right foot. Slight hallux valgus pos itioning in the first toe. Flexion and varus positioning of the distal fourth and fifth toes. Small t o moderate size inferior calcaneal spur. The overlying soft tissue appears unremarkable. IMPRESSION: As above.
--- NOTE | 2023-03-03 05:54 | XR ---
EXAMINATION TYPE: XR wrist complete LT DATE OF EXAM: 03/02/2023 CLINICAL HISTORY: Pain TECHNIQUE: Frontal, lateral and oblique images of the left wrist are obtained. 4 view scaphoid view is performed. COMPARISON: None FINDINGS: There is no acute fracture/dislocation evident in the left wrist. Moderate to severe narro wing at the base of the first metacarpal otherwise carpal joint spaces are fairly well preserved. Th e overlying soft tissue appears unremarkable. IMPRESSION: As above.
== END | disposition home or self-care (01) ==
LOC: RADXRMAIN 18:58
PROVIDERS: ATTEND Physician Assistant
DX: M18.12 Unilateral primary osteoarthritis of first carpometacarpal joint, left hand (principal)

== ENCOUNTER → 2023-08-10 | Outpatient (CLI) | payer MEDICAID ==
--- NOTE | 2023-08-11 08:51 | MM ---
Reason for Exam: Screening (asymptomatic). Last screening mammogram was performed 12 month(s) ago. Patient History: Menarche at age 11. Patient has no children. Postmenopausal. Maternal cousin had breast cancer. Paternal aunt had breast cancer. Risk Values: Lizette 5 year model risk: 1.6%. NCI Lifetime model risk: 9.3%. Prior Study Comparison: 01/01/2019 Bilateral Screening Mammogram, [facility]. 10/23/2020 Bilateral Screening Mammogram, [facility]. 07/30/2022 Bilateral MG 3D screening mammo w/cad, [facility]. Tissue Density: There are scattered areas of fibroglandular density. Findings: Analyzed By CAD. There is no suspicious group of microcalcifications or new suspicious mass in either breast. Benign-appearing calcifications. Overall Assessment: Benign, BI-RAD 2 Management: Screening Mammogram of both breasts in 1 year. . Patient should continue monthly self-breast exams. A clinical breast exam by your physician is recommended on an annual basis. This exam should not preclude additional follow-up of suspicious palpable abnormalities. Note on Lizette scores and lifetime risk: 1. A Lizette score greater than 3% is considered moderate risk. If this is the case, consider specialist referral to assess eligibility for a risk reducing agent. 2. If overall lifetime risk for the development of breast cancer is 20% or higher, the patient may qualify for future screening with alternating mammogram and breast MRI. Electronically signed and approved by: Jacky Aguilar M.D. Radiologis
== END | disposition home or self-care (01) ==
LOC: RADMAMWWP 09:04
PROVIDERS: ATTEND Family Medicine
DX: Z12.31 Encounter for screening mammogram for malignant neoplasm of breast (principal); Z80.3 Family history of malignant neoplasm of breast; Z78.0 Asymptomatic menopausal state
CPT/HCPCS: 77067

== ENCOUNTER → 2024-06-04 | Outpatient (CLI) | payer MEDICAID ==
[2024-06-04 15:10] LABS: Basophils # (A) 0.04 X 10*3/uL (0.00-0.10); Basophils % (A) 0.7 %; Eosinophils # (A) 0.07 X 10*3/uL (0.04-0.35); Eosinophils % (A) 1.3 %; HCT 45.4 % (37.2-46.3); HGB 15.2 g/dL (12.0-15.0); Immature Grans, Automated 0 %; Lymphocytes # (A) 1.82 X 10*3/uL (0.90-5.00); Lymphocytes % (A) 33.9 %; MCHC 33.5 g/dL (32.0-37.0); MCV 86.5 FL (80.0-97.0); Mean Platelet Volume 10.3 FL (9.5-12.2); Monocytes # (A) 0.43 X 10*3/uL (0.20-1.00); NRBC Per 100 WBC 0 X 10*3/uL (0.00-0.01); Neutrophils # (A) 3.01 X 10*3/uL (1.80-7.70); Neutrophils % (A) 56.1 %; Platelet Count 202 X 10*3/uL (140-440); RBC 5.25 X 10*6/uL (4.10-5.20); RDW 13.2 % (11.5-14.5); WBC 5.37 X 10*3/uL (4.50-10.00)
[2024-06-04 15:34] LABS: ALT 19 U/L (8-44); AST 25 U/L (13-35); Albumin 4.5 g/dL (3.8-4.9); Albumin/Globulin Ratio 1.61 Ratio (1.60-3.17); Alkaline Phosphatase 69 U/L (41-126); Blood Urea Nitrogen 11.2 mg/dL (9.0-27.0); Calcium 9.9 mg/dL (8.7-10.3); Carbon Dioxide 25.6 mmol/L (21.6-31.8); Chloride 104 mmol/L (96-109); Chol/HDL Ratio 3.64 Ratio; Globulin 2.8 g/dL (1.6-3.3); Glucose 95 mg/dL (70-110); Potassium 4.6 mmol/L (3.5-5.5); Sodium 142 mmol/L (135-145); T4, Free (Free Thyroxine) 1.71 ng/dL (0.80-1.80); Total Bilirubin 0.3 mg/dL (0.3-1.2); Total Protein 7.3 g/dL (6.2-8.2)
== END | disposition home or self-care (01) ==
LOC: LABWHC1 11:38
PROVIDERS: ATTEND Family Medicine
DX: Z00.00 Encounter for general adult medical examination without abnormal findings (principal); Z13.1 Encounter for screening for diabetes mellitus; Z13.220 Encounter for screening for lipoid disorders; E03.9 Hypothyroidism, unspecified; Z79.899 Other long term (current) drug therapy
CPT/HCPCS: 36415; 80053; 80061; 83036; 84439; 84443; 85025

== ENCOUNTER → 2024-06-18 | Outpatient (CLI) | payer MEDICAID ==
--- NOTE | 2024-06-19 07:16 | BD ---
EXAMINATION TYPE: Axial Bone Density DATE OF EXAM: 06/18/2024 CLINICAL HISTORY: 59 years old Female. ICD-10 CODE: Z780 POSTMENO , Additional History: Height: 61.25 Weight: 166.4 FRAX RISK QUESTIONS: Alcohol (3 or more units per day): no Family History (Parent hip fracture): no Glucocorticoids (More than 3mos): no (Ex: prednisone, prednisolone, methylprednisolone, dexamethasone, and hydrocortisone). History of Fracture in Adulthood: no Secondary Osteoporosis: 1. Type 1 Diabetes: no 2. Hyperthyroidism: no 3. Menopause before 45: no 4. Malnutrition: no 5. Chronic liver disease: no Rheumatoid Arthritis: no Current Tobacco Use: no RISK FACTORS HISTORY OF: Hip Fracture (Right/Left): no Spine Fracture: no History of Wrist Fracture: no Surgery to Spine/Hip(right/left)/Wrist (right/left): no MEDICATIONS: Thyroid Medications: Levothyroxine How Long: past 10 years Osteoporosis Medications: no EXAM MEASUREMENTS: Bone mineral densitometry was performed using the [employer] System. Bone mineral density as measured about the Lumbar spine is: ----- L1-L4(G/cm2): 1.348 T Score Values are as follows: ----- L1: 0.0 ----- L2: 1.9 ----- L3: 2.6 ----- L4: 0.9 ----- L1-L4: 1.4 Z Score Values are as follows: ----- L1: 0.8 ----- L2: 2.6 ----- L3: 3.4 ----- L4: 1.7 ----- L1-L4: 2.2 Baseline Study Bone mineral density about the R hip (g/cm2): 1.094 Bone mineral density about the L hip (g/cm2): 1.076 T Score values are as follows: -----R Neck: -0.5 -----L Neck: -0.6 -----R Total: 0.7 -----L Total: 0.5 Z Score values are as follows: -----R Neck: 0.4 -----L Neck: 0.4 -----R Total: 1.3 -----L Total: 1.2 Baseline Study FRAX%s: The graph provided illustrates a 6.2 % chance for a major osteoporotic fx and a 0.2% chance f or the hips probability for fx in 10 years time. IMPRESSION: Normal (Values between +1 and -1 indicate normal bone mass). Consider repeating this study in 5 year s or sooner if there is some new clinical indication. NOTE: T-SCORE=SD OF THE YOUNG ADULT MEAN. [facility], , 06/19/2024 7:13 AM
== END | disposition home or self-care (01) ==
LOC: RADBDWWP 15:13
PROVIDERS: ATTEND Family Medicine
DX: Z78.0 Asymptomatic menopausal state (principal)
CPT/HCPCS: 77080

== ENCOUNTER → 2024-08-21 | Outpatient (CLI) | payer MEDICAID ==
--- NOTE | 2024-08-21 11:46 | MM ---
Reason for Exam: Screening (asymptomatic). Last screening mammogram was performed 12 month(s) ago. Patient History: Menarche at age 11. Patient has no children. Postmenopausal. Currently using Estrogen and Progesterone, starting at age 57. Maternal cousin (2nd) had breast cancer. Paternal aunt had breast cancer. Risk Values: Lizette 5 year model risk: 1.7%. NCI Lifetime model risk: 9.1%. Prior Study Comparison: 10/13/2017 Bilateral Screening Mammogram, [facility]. 01/01/2019 Bilateral Screening Mammogram, [facility]. 10/23/2020 Bilateral Screening Mammogram, [facility]. 07/30/2022 Bilateral MG 3D screening mammo w/cad, [facility]. 08/10/2023 Bilateral MG screening mammo w CAD, [facility]. Tissue Density: The breasts are almost entirely fatty. Findings: Analyzed By CAD. Right breast: There is no suspicious group of microcalcifications or new suspicious mass. Left breast: There is no suspicious group of microcalcifications or new suspicious mass. Overall Assessment: Negative, BI-RAD 1 Management: Screening Mammogram of both breasts in [address] [facility] will attempt to contact patient to return for supplemental views and ultrasound if indicated. Patient should continue monthly self-breast exams. A clinical breast exam by your physician is recommended on an annual basis. This exam should not preclude additional follow-up of suspicious palpable abnormalities. Note on Lizette scores and lifetime risk: 1. A Lizette score greater than 3% is considered moderate risk. If this is the case, consider specialist referral to assess eligibility for a risk reducing agent. 2. If overall lifetime risk for the development of breast cancer is 20% or higher, the patient may qualify for future screening with alternating mammogram and breast MRI. [facility], , 08/21/2024 11:43 AM. Electronically signed and approved by: Medhat Kaur DO
== END | disposition home or self-care (01) ==
LOC: RADMAMWWP 09:58
PROVIDERS: ATTEND Family Medicine
DX: Z12.31 Encounter for screening mammogram for malignant neoplasm of breast (principal); R92.313 Mammographic fatty tissue density, bilateral breasts; Z78.0 Asymptomatic menopausal state; Z80.3 Family history of malignant neoplasm of breast
CPT/HCPCS: 77063; 77067